=== PATIENT | female | born 1950 | race African-American/Black ===

== ENCOUNTER 2017-02-02 13:02 | Emergency (ER) | payer MEDICARE ==
[~2017-02-02] VITALS: Ht 167.6 cm; Wt 83.0 kg
[~2017-02-02 13:02] MED LIST: ACIT25CA3 PO; AMMONIUM LACTATE 12%; ASPI-1158 PO; ATOR10TA69 PO; CALC60CR4 TP; CLOB15CR4 TP; LORA10TA7 PO; LOSA100T14 PO; METF500T4 PO; [UNRECOGNIZED DRUG - CODE] MC; erythromycin 0.5%; hydrocortisone 2.5% TOP
[2017-02-02 15:32] LABS: BASOPHILS % 0.7 % (0.0-2.0); EOSINOPHILS % 1.5 % (0.0-5.0); HEMOGLOBIN. 11.8 g/dL (12.0-16.0); LYMPHOCYTES % 16.6 % (20.0-50.0); MEAN CORPUSCULAR HEMOGLOBIN 27.6 pg (28.0-32.0); MEAN CORPUSCULAR VOLUME 81.8 fL (81.0-99.0); MEAN PLATELET VOLUME 9.5 fl (7.4-10.4); MONOCYTES % 8.1 % (2.0-8.0); NEUTROPHILS % 73.1 % (40.0-76.0); PLATELET 271 x1000/uL (130-400); RED BLOOD CELL COUNT 4.28 mill/uL (4.2-5.4); RED CELL DISTRIBUTION WIDTH 13.3 % (11.6-14.6)
[2017-02-02 15:38] LABS: D-DIMER 0.33 mg/L FEU (<0.50); INR 0.9; PROTHROMBIN TIME 9.8 sec
[2017-02-02 15:49] LABS: CARBON DIOXIDE 27 mEq/L (21-32); CHLORIDE 107 mEq/L (98-107)
[2017-02-02 17:19] VITALS: BP 165/77
== END 2017-02-02 17:20 | disposition home or self-care (01) ==
LOC: ER 14:14
DX: M25.521 Pain in right elbow (principal); E87.6 Hypokalemia; D64.9 Anemia, unspecified; I10 Essential (primary) hypertension; E78.00 Pure hypercholesterolemia, unspecified; E11.9 Type 2 diabetes mellitus without complications; L40.9 Psoriasis, unspecified; Z88.0 Allergy status to penicillin; Z79.82 Long term (current) use of aspirin; Z88.2 Allergy status to sulfonamides; Z88.8 Allergy status to other drugs, medicaments and biological substances
CPT/HCPCS: 36415; 73080; 80053; 83605; 84550; 85025; 85379; 85610; 85651; 86140; 87040; 93005; 93971; 99285

== ENCOUNTER 2017-03-29 12:37 | Emergency (ER) | payer MEDICARE ==
[~2017-03-29] VITALS: Ht 165.1 cm; Wt 83.0 kg
[2017-03-29 16:36] LABS: BASOPHILS % 0.6 % (0.0-2.0); EOSINOPHILS % 2.2 % (0.0-5.0); HEMATOCRIT. 36.9 % (36.0-48.0); HEMOGLOBIN. 12.3 g/dL (12.0-16.0); LYMPHOCYTES % 15.8 % (20.0-50.0); MEAN CORPUSCULAR HEMOGLOBIN 27.1 pg (28.0-32.0); MEAN CORPUSCULAR VOLUME 81.5 fL (81.0-99.0); MEAN PLATELET VOLUME 9.6 fl (7.4-10.4); MONOCYTES % 7.7 % (2.0-8.0); NEUTROPHILS % 73.7 % (40.0-76.0); PLATELET 309 x1000/uL (130-400); RED BLOOD CELL COUNT 4.53 mill/uL (4.2-5.4); RED CELL DISTRIBUTION WIDTH 13.6 % (11.6-14.6)
[2017-03-29 16:41] LABS: PROTHROMBIN TIME 10.1 sec (9.4-11.6)
[2017-03-29 16:51] LABS: CARBON DIOXIDE 28 mEq/L (21-32); CHLORIDE 107 mEq/L (98-107)
[2017-03-29 16:54] LABS: TROPONIN I < 0.02 ng/mL (0.00-0.04)
[2017-03-29 18:28] VITALS: BP 138/65
== END 2017-03-29 18:50 | disposition home or self-care (01) ==
LOC: ER 12:37
DX: R60.9 Edema, unspecified (principal); M79.89 Other specified soft tissue disorders; L03.90 Cellulitis, unspecified; E11.9 Type 2 diabetes mellitus without complications; I10 Essential (primary) hypertension; E78.00 Pure hypercholesterolemia, unspecified; Z88.0 Allergy status to penicillin; Z88.1 Allergy status to other antibiotic agents; Z88.2 Allergy status to sulfonamides; Z79.82 Long term (current) use of aspirin; Z90.710 Acquired absence of both cervix and uterus
CPT/HCPCS: 36415; 71010; 80053; 83880; 84484; 85025; 85610; 93005; 93970; 99285

== ENCOUNTER 2018-09-10 08:11 | Emergency (ER) | payer MEDICARE, MEDICAID, OTHER ==
[~2018-09-10] VITALS: Ht 165.1 cm; Wt 83.2 kg
[~2018-09-10 08:11] MED LIST changes: +METF-414 PO; -METF500T4 PO
[2018-09-10 15:36] VITALS: BP 158/72
== END 2018-09-10 15:37 | disposition home or self-care (01) ==
LOC: ER 08:24
DX: M25.561 Pain in right knee (principal); E11.9 Type 2 diabetes mellitus without complications; E78.00 Pure hypercholesterolemia, unspecified; I10 Essential (primary) hypertension; Z90.710 Acquired absence of both cervix and uterus; Z98.890 Other specified postprocedural states; Z87.891 Personal history of nicotine dependence; Z79.82 Long term (current) use of aspirin; Z79.899 Other long term (current) drug therapy; Z88.0 Allergy status to penicillin; Z88.2 Allergy status to sulfonamides
CPT/HCPCS: 73560; 99283